=== PATIENT | female | born 1995 | race Asian ===

== ENCOUNTER 2018-01-27 19:17 | Emergency (ER) | payer OTHER ==
[~2018-01-27] VITALS: Ht 165.1 cm; Wt 62.6 kg
--- NOTE | 2018-01-27 21:00 | Emergency Room Report ---
History of Present Illness General Chief Complaint: Lower Extremity Injury Source: Patient Present Illness HPI Inversion injury L foot earlier today. Unable to walk several steps. Swelling medially and some laterally. Pain is 9/10, worse with weight bear or attempt to walk. No numbness. No prior injury. Recently took advil with some help. States not . Allergies: Coded Allergies: No Known Allergies (Unverified , 01/27/18) Patient History Past Medical History: see triage record Social History: Denies: smoking, alcohol use, drug use Social History Narrative has job interview tomorrow. Now: No Reviewed Nursing Documentation: PMH: Agreed; PSxH: Agreed Nursing Documentation-PMH Past Medical History: No Stated History Review of Systems Constitutional: Denies: fever Genitourinary: Reports: see HPI Musculoskeletal: Reports: see HPI Skin: Reports: see HPI Psychiatric: Reports: anxiety - about job interview Neurological: Reports: see HPI Hematologic/Lymphatic: Denies: easy bruising Physical Exam Vital Signs Date Time Temp Pulse Resp B/P (MAP) Pulse Ox O2 Delivery O2 Flow Rate FiO2 01/27/18 19:30 98.2 76 16 114/76 99 Room Air 98.2 Sp02 EP Interpretation: reviewed, normal General Appearance: well appearing, no apparent distress Head: normocephalic, atraumatic Eyes: bilateral eye normal inspection, bilateral eye PERRL ENT: hearing grossly normal, normal voice Neck: full range of motion, supple Respiratory: no respiratory distress, speaking full sentences Cardiovascular #1: regular rate, rhythm Cardiovascular #2: 2+ dorsalis pedis (L) Musculoskeletal: digits/nails normal, no calf tenderness, decreased range of mation, swelling - bilat, worse medially, other - no 5th MT tend. Ligaments stable but tender Neurologic: alert, motor strength/tone normal, sensory intact, normal gait Psychiatric: mood/affect normal Skin: no rash Medical Decision Making Diagnostic Impression: Primary Impression: Ankle sprain Qualified Codes: S93.402A - Sprain of unspecified ligament of left ankle, initial encounter ER Course Patient with ankle injury. Based on [place] ankle rules x-rays indicated. DDx: fx, sprain, contusion. Analgesia ordered. Xrays without fx. Air splint applied. Neurovasc normal as checked by me. Patient stable for outpatient observation and treatment. Other X-Ray Diagnostic Results Other X-Ray Diagnostic Results : # of Views/Limited Vs Complete: 3 View Indication: Other EP Interpretation: Yes Interpretation: no dislocation, no fractures, other - STS Impression: Other Electronically Signed by: Nicolas Hackett MD Last Vital Signs Date Time Temp Pulse Resp B/P (MAP) Pulse Ox O2 Delivery O2 Flow Rate FiO2 01/27/18 21:20 0/0 01/27/18 19:57 98.2 01/27/18 19:30 76 16 99 Room Air Status: improved Disposition: HOME, SELF-CARE Condition: Improved Scripts Tramadol Hcl* (ULTRAM*) 50 Mg Tablet 50 MG ORAL Q6H PRN for For Pain, #6 TAB 1 Refill Prov: Nicolas Hackett M.D. 01/27/18 Ibuprofen* (MOTRIN*) 600 Mg Tablet 600 MG ORAL Q6H PRN for For Pain, #20 TAB Prov: Nicolas Hackett M.D. 01/27/18 Nicolas Hackett M.D. Jan 27, 2018 21:00
[2018-01-27] MEDS ORDERED: TRAMADOL HCL50 MG ORAL (21:02)
[2018-01-27] MEDS ORDERED: IBUPROFEN600 MG ORAL (21:02)
[2018-01-27 21:20] VITALS: BP 0/0
--- NOTE | 2018-01-28 10:45 | Diagnostic Imaging Report ---
Indication: Trauma, pain, status post fall Technique: 3 views of the left ankle Comparison: none Findings: No acute fractures. No dislocations. The joint spaces are preserved Impression: Negative
== END 2018-01-27 21:20 | disposition home or self-care (01) ==
LOC: EMR 20:00
DX: S93.402A Sprain of unspecified ligament of left ankle, initial encounter (principal); F41.9 Anxiety disorder, unspecified; X50.1XXA Overexertion from prolonged static or awkward postures, initial encounter; Y92.9 Unspecified place or not applicable
CPT/HCPCS: 99284